=== PATIENT | female | born 1960 | race Caucasian/White ===

== ENCOUNTER → 2017-05-02 | Outpatient (CLI) | payer OTHER ==
[2017-05-02 13:22] LABS: BASO % 0.5 %; BASO ABS # 0.03 K/uL (0-0.2); COMPLETE YES; EOS % 1.8 %; HEMATOCRIT 44.7 % (37-47); IG% 0.2 %; LYMPH % 32.6 %; LYMPH ABS # 2.01 K/uL (1.2-3.4); MEAN CELL VOLUME 89.8 fL (80-100); MEAN CORPUSCULAR HEMOGLOBIN 29.3 pg (25-34); MEAN CORPUSCULAR HGB CONC 32.7 g/dl (32-36); MEAN PLATELET VOLUME 10.4 fL (7.4-10.4); NEUT % 58.9 %; PLATELET COUNT 297 K/uL (130-400); RED BLOOD COUNT 4.98 M/uL (4.2-5.4); WHITE BLOOD COUNT 6.16 K/uL (4.8-10.8)
[2017-05-02 14:02] LABS: ALKALINE PHOSPHATASE 57 U/L (45-117); ALT/SGPT 34 U/L (12-78); AST/SGOT 19 U/L (15-37); THYROID STIMULATING HORMONE < 0.005 uIu/ml (0.300-4.500)
[2017-05-06 15:38] LABS: TSI <89 % baseline (<140)
== END | disposition home or self-care (01) ==
LOC: C.LAB1850 11:39
PROVIDERS: ATTEND Internal Medicine Endocrinology, Diabetes & Metabolism
DX: R94.6 Abnormal results of thyroid function studies (principal)

== ENCOUNTER → 2017-05-06 | Outpatient (CLI) | payer OTHER ==
--- NOTE | 2017-05-06 08:33 | DIAGNOSTIC IMAGING REPORT ---
SOFT TISS HEAD/NECK-THYROID CLINICAL HISTORY: 57 years-old Female presenting with R94.6 Abnormal thyroid function [id number]. TECHNIQUE: Real-time grayscale and color and spectral Doppler ultrasound imaging of the thyroid and base of the neck was performed. COMPARISON: None. FINDINGS: Right lobe: Normal echogenicity and echotexture. The right lobe of the thyroid measures 6.8 x 2.0 x 1.8 cm. Multiple nodules, the largest detailed below: 1) lower pole predominantly cystic 1.3 x 1.0 x 1.1 cm nodule with well-defined margins and multiple foci of hyperechogenicity consistent with inspissated colloid (very low suspicion). Left lobe: Normal echogenicity and echotexture. The left lobe of the thyroid measures 5.6 x 1.9 x 1.7 cm. Multiple nodules, the largest detailed below: 2) mid pole well-defined hypoechoic to anechoic nodule, which is likely at least in part cystic. A focus of hyperechogenicity without shadowing is likely consistent with inspissated colloid. This measures 0.8 x 0.6 x 0.5 cm) this is very low suspicion). Isthmus: The isthmus measures 8 mm in thickness. No nodules. IMPRESSION: Multiple nodules are very low in suspicion for malignancy, most consistent with colloid cysts. Electronically signed by: Gilmar Alexis M.D. 05/06/2017 8:32 AM Dictated Date/Time: 05/06/2017 8:29 AM
== END | disposition home or self-care (01) ==
LOC: C.ULTR 08:09
PROVIDERS: ATTEND Internal Medicine Endocrinology, Diabetes & Metabolism
DX: R94.6 Abnormal results of thyroid function studies (principal); R91.8 Other nonspecific abnormal finding of lung field

== ENCOUNTER → 2017-05-24 | Outpatient (CLI) | payer OTHER | END | disposition home or self-care (01) | LOC: C.LAB1850 16:15 | PROVIDERS: ATTEND Internal Medicine Endocrinology, Diabetes & Metabolism | DX: R94.6 Abnormal results of thyroid function studies (principal) ==

== ENCOUNTER → 2017-07-30 | Outpatient (CLI) | payer OTHER ==
[2017-07-30 12:41] LABS: THYROID STIMULATING HORMONE 1.69 uIu/ml (0.300-4.500)
== END | disposition home or self-care (01) ==
LOC: C.LAB1850 11:12
PROVIDERS: ATTEND Internal Medicine Endocrinology, Diabetes & Metabolism
DX: R94.6 Abnormal results of thyroid function studies (principal)

== ENCOUNTER → 2018-01-14 | Outpatient (CLI) | payer OTHER ==
--- NOTE | 2018-01-15 15:05 | MAMMOGRAPHY REPORT ---
BILATERAL DIGITAL SCREENING MAMMOGRAM TOMOSYNTHESIS WITH CAD: 01/14/2018 CLINICAL HISTORY: Routine screening. Patient has no complaints. TECHNIQUE: Breast tomosynthesis in addition to standard 2D mammography was performed. Current study was also evaluated with a Computer Aided Detection (CAD) system. COMPARISON: No prior exams were available for comparison. BREAST COMPOSITION: There are scattered areas of fibroglandular density in both breasts. FINDINGS: No suspicious mass, architectural distortion or cluster of microcalcifications is seen. IMPRESSION: ACR BI-RADS CATEGORY 1: NEGATIVE There is no mammographic evidence of malignancy. Prior outside mammograms are currently being reques johnny and if obtained they will be reviewed, compared to the current exam to assess for any more subtle changes, and an addendum will be made to this report. Otherwise, a 1 year screening mammogram is re commended. The patient will receive written notification of the results. Approximately 10% of breast cancers are not detected with mammography. A negative mammographic report should not delay biopsy if a clinically suggestive mass is present. Arielle Sevilla M.D. ay/:01/14/2018 17:35:25 Wrapper Opener: Sandra BELTRÁN)(Win), [facility] letter sent: Normal 1/2 BI-RADS Code: ACR BI-RADS Category 1: Negative
== END | disposition home or self-care (01) ==
LOC: C.MAMM 14:34
PROVIDERS: ATTEND Neuromusculoskeletal Medicine & OMM
DX: Z12.31 Encounter for screening mammogram for malignant neoplasm of breast (principal)